=== PATIENT | female | born 1965 | race Asian ===

== ENCOUNTER 2016-11-26 18:34 | Inpatient (IN) | payer OTHER ==
[~2016-11-26] VITALS: Ht 160 cm; Wt 62.1 kg
[2016-11-26 21:12] LABS: CALCIUM 9.3 mg/dL (8.5-10.1); CARBON DIOXIDE 26.3 mmol/L (21-32); CHLORIDE SERUM 105 mmol/L (98-107); CREATININE SERUM 0.9 mg/dL (0.6-1.0); GFR1 > 60 mL/min; GLUCOSE SERUM 102 mg/dL (74-106); POTASSIUM SERUM 3.9 mmol/L (3.5-5.1); SODIUM SERUM 140 mmol/L (136-145)
[2016-11-26 21:16] LABS: ALBUMIN 3.8 g/dL (3.4-5.0); ALKALINE PHOSPHATASE 64 U/L (46-116); ALT/SGPT 26 U/L (14-59); AST/SGOT 17 U/L (15-37); BILIRUBIN TOTAL 0.4 mg/dL (0.20-1.00)
[2016-11-26 21:33] LABS: BASOPHIL % 0.5 % (0-2); PLATELET COUNT 344 x10^3mcL (130-400); RED CELL DISTRIBUTION WIDTH 12.9 % (11.5-14.5)
[2016-11-27 00:16] VITALS: BP 130/49
[2016-11-27 00:44] LABS: CHOLESTEROL/HDL RATIO 3.5; MAGNESIUM 2.1 mg/dL (1.8-2.4); PHOSPHOROUS 3.3 mg/dL (2.5-4.9)
[2016-11-27 00:58] LABS: FREE T4 0.91 ng/dL (0.76-1.46); FREE THYROXINE INDEX 2.5 ug/dL (1.4-4.5); T4(THYROXINE) 8.1 ug/dL (4.7-13.3)
[2016-11-27 01:05] LABS: T3 TOTAL 1.2 ng/mL
[2016-11-27 06:26] VITALS: BP 100/43
[2016-11-27 06:58] LABS: CHLORIDE SERUM 108 mmol/L (98-107); CREATININE SERUM 0.9 mg/dL (0.6-1.0); GFR1 > 60 mL/min; GLUCOSE SERUM 97 mg/dL (74-106); MAGNESIUM 2.1 mg/dL (1.8-2.4); PHOSPHOROUS 3.7 mg/dL (2.5-4.9); POTASSIUM SERUM 4.1 mmol/L (3.5-5.1); SODIUM SERUM 143 mmol/L (136-145)
[2016-11-27 07:05] LABS: BASOPHIL % 0.6 % (0-2); PLATELET COUNT 300 x10^3mcL (130-400); RED CELL DISTRIBUTION WIDTH 12.8 % (11.5-14.5)
[2016-11-27 07:14] LABS: microscopic required? NO
[2016-11-27 07:41] LABS: AMPHETAMINE QUAL UR NONE DETECTED (NEG <=1000)
[2016-11-27 07:56] LABS: urine erythrocyte NEGATIVE (NEGATIVE)
[2016-11-27 09:40] VITALS: BP 119/54
== END 2016-11-27 17:05 | disposition left against medical advice (07) | DRG 206 ==
LOC: ED 18:34 → DU 22:32
PROVIDERS: Emergency Medicine; ADMIT Family Medicine
DX: M94.0 Chondrocostal junction syndrome [Tietze] (principal); K21.9 Gastro-esophageal reflux disease without esophagitis; I10 Essential (primary) hypertension; E02 Subclinical iodine-deficiency hypothyroidism; E78.1 Pure hyperglyceridemia; D72.829 Elevated white blood cell count, unspecified; F43.9 Reaction to severe stress, unspecified; N60.02 Solitary cyst of left breast; N60.01 Solitary cyst of right breast; Z68.24 Body mass index [BMI] 24.0-24.9, adult; Z88.8 Allergy status to other drugs, medicaments and biological substances; Z88.3 Allergy status to other anti-infective agents; Z88.2 Allergy status to sulfonamides; Z90.710 Acquired absence of both cervix and uterus
CPT/HCPCS: 76641; 80307; 82962; 83880; 84439; G0480; J2270; J2405; J7030; Q0092